=== PATIENT | male | born 1975 | race African-American/Black ===

== ENCOUNTER 2020-08-21 16:53 | Observation (INO) | payer OTHER ==
[~2020-08-21] VITALS: Ht 177.8 cm; Wt 72.3 kg
[2020-08-21] MEDS ORDERED: CYCLOBENZAPRINE10 MG PO (17:01)
[2020-08-21 17:53] LABS: BASOPHILS 0.2 % (0-2); EOSINOPHILS 0.6 % (0-7); HEMATOCRIT 26.5 % (42.0-54.0); IMMATURE GRANULOCYTES 0.3 % (0-5); LYMPHOCYTE ABS# 0.85 10x3/uL (1.32-3.57); LYMPHOCYTES 6.9 % (15-50); MCH 29.8 pg (26.0-34.0); MCV 87.7 fL (80.0-100.0); MEAN PLATELET VOLUME 9.6 fL (7.4-10.4); MONOCYTES 7.3 % (2-11); NEUTROPHILS 84.7 % (40-80); PLATELET COUNT 179 10x3/uL (130-400); RBC 3.02 10x6/uL (4.20-6.10); RDW 14.2 % (11.5-14.5); WBC 12.3 10x3/uL (4.8-10.8)
[2020-08-21 18:01] LABS: ANION GAP 15.4 mmol/L (8-16); CALCIUM 8.3 mg/dL (8.5-10.1); CARBON DIOXIDE 27.2 mmol/L (21.0-32.0); CREATININE - SERUM 1.5 mg/dL (0.6-1.3); POTASSIUM - SERUM 3.6 mmol/L (3.5-5.1)
--- NOTE | 2020-08-21 18:02 | NUR ---
MEMO POSITIVE. DR. TIWARI NOTIFIED.
[2020-08-21 18:05] LABS: INR 1.19 (0.85-1.17)
[2020-08-21 18:07] LABS: ALBUMIN 2.7 g/dL (3.4-5.0); BILIRUBIN - TOTAL 0.17 mg/dL (0.2-1.3); PROTEIN - SERUM 5.7 g/dL (6.4-8.2)
[2020-08-21 18:41] LABS: BILIRUBIN NEGATIVE (NEGATIVE); KETONE NEGATIVE (NEGATIVE); NITRITE NEGATIVE (NEGATIVE); UROBILINOGEN NORMAL mg/dL (< 2)
[2020-08-21 20:14] VITALS: BP 103/61
[2020-08-21 21:00] VITALS: BP 108/75
[2020-08-21 22:00] VITALS: BP 117/74
[2020-08-21 22:09] VITALS: BP 103/73
[2020-08-21 22:22] LABS: CKMB 0.6 U/L (0.0-3.6); CREATINE KINASE 312 UL (21-232); MAGNESIUM - SERUM 1.9 mg/dL (1.8-2.4)
[2020-08-21 22:24] LABS: TROPONIN-I < 0.017 ng/mL (0.000-0.060)
[2020-08-21 22:28] VITALS: BP 103/79; Ht 177.8 cm; Wt 72.3 kg
[2020-08-21 23:00] VITALS: BP 119/57
[2020-08-21 23:20] LABS: BASOPHILS 0.2 % (0-2); EOSINOPHILS 0.4 % (0-7); HEMATOCRIT 21.3 % (42.0-54.0); IMMATURE GRANULOCYTES 0.2 % (0-5); LYMPHOCYTE ABS# 1.67 10x3/uL (1.32-3.57); LYMPHOCYTES 13.8 % (15-50); MCH 29.8 pg (26.0-34.0); MCHC 34.3 g/dL (31.0-37.0); MCV 86.9 fL (80.0-100.0); MEAN PLATELET VOLUME 9.3 fL (7.4-10.4); MONOCYTES 6.7 % (2-11); NEUTROPHIL ABS# 9.53 10x3/uL (1.78-5.38); NEUTROPHILS 78.7 % (40-80); PLATELET COUNT 169 10x3/uL (130-400); RBC 2.45 10x6/uL (4.20-6.10); RDW 14.1 % (11.5-14.5); WBC 12.1 10x3/uL (4.8-10.8)
[2020-08-21 23:25] LABS: HEMOGLOBIN 7.3 g/dL (13.5-17.5)
[2020-08-22] VITALS (7 sets, daily range): BP systolic 111–133; BP diastolic 41–80
--- NOTE | 2020-08-22 02:55 | NUR ---
SPOKE WITH DR. WARD REGARDING DROP IN PT'S H&H. 2 UNITS PRBC ORDERED THEN RECHECK LABS.
[2020-08-22 06:00] LABS: UDS - AMPHET NEGATIVE QUAL (NEGATIVE); UDS - BARB NEGATIVE QUAL (NEGATIVE); UDS - BENZO NEGATIVE QUAL (NEGATIVE); UDS - COCAINE NEGATIVE QUAL (NEGATIVE); UDS - OPIATE NEGATIVE QUAL (NEGATIVE); UDS - PCP NEGATIVE QUAL (NEGATIVE); UDS - THC POSITIVE QUAL (NEGATIVE)
--- NOTE | 2020-08-22 07:00 | NUR ---
DR. WARD AT BEDSIDE, EGD PERFORMED
--- NOTE | 2020-08-22 07:35 | NUR ---
PT WANTING TO GO DR. SYLVIA LORD AWARE
--- NOTE | 2020-08-22 07:42 | NUR ---
PT PULLING OUT IV'S, YELLING I'M GOING HOME, REFUSING TO SIGN AMA PAPERWORK, WALKING OUT OF ROOM HEADED TOWARD DOORS, PT ESCORTED TO ER DOOR, DR. OBRIEN NOTIFIED
== END 2020-08-22 07:52 | disposition left against medical advice (07) ==
LOC: EDBD 16:53 → D.ER 16:53 → D.ICU 19:10 → OBSVTIME 19:10 → D.ICU 08-22 07:52
PROVIDERS: Family Medicine; ADMIT Family Medicine; ATTEND Family Medicine
DX: K92.2 Gastrointestinal hemorrhage, unspecified (principal); D64.9 Anemia, unspecified; N17.9 Acute kidney failure, unspecified; F17.203 Nicotine dependence unspecified, with withdrawal